=== PATIENT | female | born 1965 | race African-American/Black ===

== ENCOUNTER 2018-10-16 21:21 | Emergency (ER) | payer OTHER, SELFPAY ==
[~2018-10-16] VITALS: Ht 167.6 cm; Wt 68.0 kg
[~2018-10-16 21:21] MED LIST: NKM
--- NOTE | 2018-10-16 21:21 | NUR ---
ED Nurse Note: PT PUSHPAA RA 60, PT STATES SHE HAS STERNAL CHEST PAIN X 1 HOUR. ERMD AT BEDSIDE. PT IS RESTLESS AND SPEAKING LOUDLY.
--- NOTE | 2018-10-16 21:22 | NUR ---
ED Nurse Note: HUE AT BEDSIDE
[2018-10-16 21:24] VITALS: BP 142/85
--- NOTE | 2018-10-16 21:25 | NUR ---
ED Nurse Note: IV ACCESS ESTABLISHED, AND BLOOD SENT TO LAB.
[2018-10-16] MEDS ORDERED: Acetaminophen 500mg (ES) tab ORAL ONE ×2 (21:35→21:45)
[2018-10-16] MEDS ORDERED: LORazepam Inj 2mg/ml 1ml ONE (21:36)
[2018-10-16] MEDS ORDERED: LORazepam Inj 2mg/ml 1ml IV ONE ×2 (21:45→22:00)
[2018-10-16 21:48] LABS: BASOPHILS % (AUTO) 2.4 % (0.0-2.0); EOSINOPHILS % (AUTO) 2.8 % (0.0-3.0); HEMATOCRIT 45.7 % (37.0-47.0); HEMOGLOBIN 14.5 G/DL (12.0-16.0); LYMPHOCYTES % (AUTO) 44.4 % (20.0-45.0); MEAN CORPUSCULAR VOLUME 76 FL (80-99); MONOCYTES % (AUTO) 9.9 % (1.0-10.0); NEUTROPHILS % (AUTO) 40.5 % (45.0-75.0); PLATELET COUNT 212 K/UL (150-450); RED BLOOD COUNT 5.99 M/UL (4.20-5.40); RED CELL DISTRIBUTION WIDTH 12.5 % (11.6-14.8); WHITE BLOOD COUNT 6.7 K/UL (4.8-10.8)
--- NOTE | 2018-10-16 21:50 | NUR ---
ED Nurse Note: XRAY AT BEDSIDE
[2018-10-16 21:55] LABS: ANION GAP 12 mmol/L (5-15); BLOOD UREA NITROGEN 10 mg/dL (7-18); CALCIUM 10.1 MG/DL (8.5-10.1); CARBON DIOXIDE 28 MMOL/L (21-32); CHLORIDE 102 MMOL/L (98-107); CREATININE 0.8 MG/DL (0.55-1.30); POTASSIUM 3.9 MMOL/L (3.5-5.1); SODIUM 142 MMOL/L (136-145)
[2018-10-16 22:05] LABS: APPEARANCE,URINE CLEAR; BILIRUBIN, URINE NEGATIVE (NEGATIVE); COLOR,URINE PALE YELLOW; GLUCOSE, URINE (UA) NEGATIVE (NEGATIVE); KETONES,URINE NEGATIVE (NEGATIVE); LEUKOCYTE ESTERASE ,URINE 1+ (NEGATIVE); NITRITE,URINE NEGATIVE (NEGATIVE); PH,URINE 6.5 (4.5-8.0); PROTEIN,URINE NEGATIVE (NEGATIVE); UROBILINOGEN,URINE NORMAL MG/DL (0.0-1.0)
[2018-10-16 22:08] LABS: ALANINE AMINOTRANSFERASE 30 U/L (12-78); ALKALINE PHOSPHATASE 65 U/L (46-116); ASPARTATE AMINO TRANSFERASE 26 U/L (15-37); BILIRUBIN,TOTAL 0.3 MG/DL (0.2-1.0); CKMB 1.6 NG/ML (0.0-3.6); CREATINE KINASE 231 U/L (26-308)
[2018-10-16] MEDS ORDERED: cefTRIAXone 1 GM in NS 55 ML IVPB ONE (22:30)
--- NOTE | 2018-10-16 22:33 | NUR ---
ED Nurse Note: PT IN BED ASLEEP, VSS, STILL AT BEDSIDE.
--- NOTE | 2018-10-16 22:34 | NUR ---
ED Nurse Note: HUE () [phone]. LEFT TO GET FOOD
[2018-10-16 23:26] VITALS: BP_SYST 121; BP_SYST 21; BP_DIAS 72
[2018-10-16] MEDS ORDERED: TYLENOL EXTRA500 MG ORAL (23:44)
[2018-10-16] MEDS ORDERED: CEPHALEXIN500 MG ORAL (23:44)
[2018-10-16 23:52] VITALS: BP 127/76
--- NOTE | 2018-10-16 23:52 | NUR ---
ER DISCHARGE NOTE: Patient is cleared to be discharged per ERMD, pt is aox4, on room air, with stable vital signs. pt was given dc and prescription instructions, pt was able to verbalize understanding, pt id band and iv site removed without complications. pt is able to ambulate with steady gait. pt took all belongings. pt accompanied by .
--- NOTE | 2018-10-17 00:22 | Emergency Room Report ---
History of Present Illness General Chief Complaint: Chest Pain Source: Patient Present Illness HPI 52 yo F presents to ED c/o chest pain. brought in by EMS from home. Complaining of chest pain which started tonight. Midsternal, sharp, 7 out of 10 , nonradiating. Was given nitro without relief. Patient denies alcohol or drug use. Denies shortness of breath. Is crying. Family at bedside states that patient does have history of anxiety and does have a lot of stress. No other aggravating relieving factors. Denies any other associated symptoms Allergies: Coded Allergies: PENICILLINS (Verified Allergy, Unknown, 10/16/18) Patient History Past Medical History: none Past Surgical History: none Pertinent Family History: none Social History: Denies: smoking, alcohol use, drug use Last Menstrual Period: n/a Now: No Immunizations: UTD Reviewed Nursing Documentation: PMH: Agreed; PSxH: Agreed Nursing Documentation-PMH Past Medical History: No Stated History Review of Systems All Other Systems: negative except mentioned in HPI Physical Exam Vital Signs Date Time Temp Pulse Resp B/P (MAP) Pulse Ox O2 Delivery O2 Flow Rate FiO2 10/16/18 21:15 97.9 110 18 142/85 (104) 98 Room Air Sp02 EP Interpretation: reviewed, normal General Appearance: alert, GCS 15, non-toxic, mild distress Head: normocephalic, atraumatic Eyes: bilateral eye normal inspection, bilateral eye PERRL ENT: hearing grossly normal, normal pharynx, no angioedema, normal voice Neck: full range of motion, supple/symm/no masses Respiratory: lungs clear, normal breath sounds, speaking full sentences, other - reproducible sternal chest wall pain Cardiovascular #1: regular rate, rhythm, no edema Cardiovascular #2: 2+ carotid (R), 2+ carotid (L), 2+ radial (R), 2+ radial (L) , 2+ dorsalis pedis (R), 2+ dorsalis pedis (L) Gastrointestinal: normal bowel sounds, non tender, soft, non-distended, no guarding, no rebound Rectal: deferred Genitourinary: normal inspection, no CVA tenderness Musculoskeletal: back normal, gait/station normal, normal range of motion, non- tender Neurologic: alert, oriented x3, responsive, motor strength/tone normal, sensory intact, speech normal Psychiatric: anxious Reflexes: 3+ bicep (R), 3+ bicep (L), 3+ tricep (R), 3+ tricep (L), 3+ knee (R) , 3+ knee (L) Lymphatic: no adenopathy Medical Decision Making Diagnostic Impression: Primary Impression: UTI (urinary tract infection) Qualified Codes: N39.0 - Urinary tract infection, site not specified Additional Impressions: Anxiety Chest pain Qualified Codes: R07.9 - Chest pain, unspecified ER Course Hospital Course 52-year-old female presents ED complaining of chest pain. Crying. Differential diagnoses include: PR/unstable angina, dehydration, anxiety Clinical course Patient placed on stretcher. on surveillance system monitor. After initial history and physical I ordered labs, EKG, chest x-ray, CT Brain, IVFs and ativan labs reviewed- no leukocytosis, hemoglobin/hematocrit stable, troponins negative , electrolytes okay, UA + bacteria, + THC EkG - sinus tachycardia, no acute ischemic changes interpreted by me given rocephin in ED Reassessment patient feeling better. Pain was reproducible and sternal. Likely muscular. Given Tylenol. Family at bedside states patient does have history of anxiety and there is been recent deaths in the family which are likely triggering her symptoms. Safe for discharge for close outpatient follow-up. Will provide referrals I. I feel this is a highly complex case requiring extensive working including EKG/Rhythm strip, Xray/CT/US, Blood/urine lab work, repeat exams while in ED, and administration of strong opiates/narcotics for pain control, admission to hospital or close patient follow up. Diagnosis - UTI, chest pain, anxiety Stable and discharged to home with Rx Keflex, tylenol. Followup with PMD. Return to ED if symptoms recur or worse Labs Test 10/16/18 21:20 10/16/18 22:00 White Blood Count 6.7 K/UL (4.8-10.8) Red Blood Count 5.99 M/UL (4.20-5.40) Hemoglobin 14.5 G/DL (12.0-16.0) Hematocrit 45.7 % (37.0-47.0) Mean Corpuscular Volume 76 FL (80-99) Mean Corpuscular Hemoglobin 24.2 PG (27.0-31.0) Mean Corpuscular Hemoglobin Concent 31.6 G/DL (32.0-36.0) Red Cell Distribution Width 12.5 % (11.6-14.8) Platelet Count 212 K/UL (150-450) Mean Platelet Volume 8.7 FL (6.5-10.1) Neutrophils (%) (Auto) 40.5 % (45.0-75.0) Lymphocytes (%) (Auto) 44.4 % (20.0-45.0) Monocytes (%) (Auto) 9.9 % (1.0-10.0) Eosinophils (%) (Auto) 2.8 % (0.0-3.0) Basophils (%) (Auto) 2.4 % (0.0-2.0) Sodium Level 142 MMOL/L (136-145) Potassium Level 3.9 MMOL/L (3.5-5.1) Chloride Level 102 MMOL/L (98-107) Carbon Dioxide Level 28 MMOL/L (21-32) Anion Gap 12 mmol/L (5-15) Blood Urea Nitrogen 10 mg/dL (7-18) Creatinine 0.8 MG/DL (0.55-1.30) Estimat Glomerular Filtration Rate > 60 mL/min (>60) Glucose Level 93 MG/DL (74-106) Calcium Level 10.1 MG/DL (8.5-10.1) Total Bilirubin 0.3 MG/DL (0.2-1.0) Aspartate Amino Transf (AST/SGOT) 26 U/L (15-37) Alanine Aminotransferase (ALT/SGPT) 30 U/L (12-78) Alkaline Phosphatase 65 U/L (46-116) Total Creatine Kinase 231 U/L (26-308) Creatine Kinase MB 1.6 NG/ML (0.0-3.6) Creatine Kinase MB Relative Index 0.6 Troponin I 0.002 ng/mL (0.000-0.056) Pro-B-Type Natriuretic Peptide 43 pg/mL (0-125) Total Protein 8.1 G/DL (6.4-8.2) Albumin 4.0 G/DL (3.4-5.0) Globulin 4.1 g/dL Albumin/Globulin Ratio 1.0 (1.0-2.7) Urine Color Pale yellow Urine Appearance Clear Urine pH 6.5 (4.5-8.0) Urine Specific [place] 1.010 (1.005-1.035) Urine Protein Negative (NEGATIVE) Urine Glucose (UA) Negative (NEGATIVE) Urine Ketones Negative (NEGATIVE) Urine Blood Negative (NEGATIVE) Urine Nitrite Negative (NEGATIVE) Urine Bilirubin Negative (NEGATIVE) Urine Urobilinogen Normal MG/DL (0.0-1.0) Urine Leukocyte Esterase 1+ (NEGATIVE) Urine RBC 0 /HPF (0 - 2) Urine WBC 10-15 /HPF (0 - 2) Urine Squamous Epithelial Cells Moderate /LPF (NONE/OCC) Urine Bacteria Moderate /HPF (NONE) Urine Opiates Screen Negative (NEGATIVE) Urine Barbiturates Screen Negative (NEGATIVE) Phencyclidine (PCP) Screen Negative (NEGATIVE) Urine Amphetamines Screen Negative (NEGATIVE) Urine Benzodiazepines Screen Negative (NEGATIVE) Urine Cocaine Screen Negative (NEGATIVE) Urine Marijuana (THC) Screen Positive (NEGATIVE) EKG Diagnostic Results Rate: tachycardiac Rhythm: NSR ST Segments: no acute changes ASA given to the pt in ED: No Rhythm Strip Diag. Results EP Interpretation: yes Rhythm: NSR, no PVC's, no ectopy Chest X-Ray Diagnostic Results Chest X-Ray Diagnostic Results : Chest X-Ray Ordered: Yes # of Views/Limited/Complete: 1 View Indication: Chest Pain EP Interpretation: Yes Interpretation: no consolidation, no effusion, no pneumothorax, no acute cardiopulmonary disease Impression: No acute disease Electronically Signed by: Electronically signed by Blake Villafana MD Last Vital Signs Date Time Temp Pulse Resp B/P (MAP) Pulse Ox O2 Delivery O2 Flow Rate FiO2 10/16/18 23:52 98.3 73 16 127/76 100 Room Air Status: improved Disposition: HOME, SELF-CARE Condition: Stable Scripts Cephalexin* (KEFLEX*) 500 Mg Capsule 500 MG ORAL EVERY 6 HOURS for 7 Days, CAP Prov: Blake Villafana MD 10/16/18 Acetaminophen* (TYLENOL EXTRA STRENGTH*) 500 Mg Tablet 500 MG ORAL Q8H PRN for Prn Headache/Temp > 101, #30 TAB 0 Refills Prov: Blake Villafana MD 10/16/18 Referrals: NOT CHOSEN IPA/,REFERRING (PCP) Queenie Stapleton [facility] Departure Forms: Return to Work Return to Work Date: Oct 19, 2018 Work Restrictions: None Patient Instructions: Panic Attacks, [id number], Dysuria Blake Villafana MD Oct 17, 2018 00:22
--- NOTE | 2018-10-17 12:50 | Diagnostic Imaging Report ---
Indication: Chest pain Technique: One view of the chest Comparison: 08/11/2009 Findings: The heart size is upper limits of normal. Lung bases are clear. The aorta is somewhat tortuous. There is no significant interval change. Impression: No acute process
== END 2018-10-16 23:52 | disposition home or self-care (01) ==
LOC: EDBD 21:21 → EMR 21:30
DX: N39.0 Urinary tract infection, site not specified (principal); F41.9 Anxiety disorder, unspecified; R07.9 Chest pain, unspecified; Z88.0 Allergy status to penicillin; R00.0 Tachycardia, unspecified
CPT/HCPCS: 36415; 71045; 80053; 80307; 81003; 82550; 82553; 83880; 84484; 85025; 87086; 93005; 96365; 96375; 96376; 99284; J0696